=== PATIENT | male | born 1970 | race American Indian/Alaskan Native ===

== ENCOUNTER 2019-01-17 08:29 | Day surgery (SDC) | payer BC ==
[~2019-01-17 08:29] MED LIST: ceFAZolin/STERILE WATER 2 GM/20 ML SYRINGE IV NR
--- NOTE | 2019-01-17 09:01 | Anesthesia Day of Surgery ---
Anesthesia Day of Surgery - Day of Surgery Patient Examined: Yes Patient H&P Reviewed: Yes Patient is NPO: Yes
--- NOTE | 2019-01-17 09:01 | Anesthesia Consultation ---
Anesthesia Consult and Med Hx Date of service: 01/17/19 - Airway Anesthetic Teeth Evaluation: Good ROM Head & Neck: Adequate Mental/Hyoid Distance: Adequate Mallampati Class: Class II Intubation Access Assessment: Good - Pulmonary Exam CTA: Yes - Cardiac Exam Cardiac Exam: RRR - Pre-Operative Health Status ASA Pre-Surgery Classification: ASA1 Proposed Anesthetic Plan: General - Pulmonary Hx Smoking: No Hx Sleep Apnea: No (GODWIN PRE SCREEN LOW RISK) - Cardiovascular System Hx Hypertension: No - Other Systems Hx Substance Use: Yes (MARIJUANA 2-3 X PER WEEK) Hx Cancer: No
[2019-01-17] MEDS ORDERED: ONDANSETRON 4 MG/2 ML INJ IV PRN (09:02)
[2019-01-17] MEDS ORDERED: HYDROmorphone 1 MG/1 ML INJ IV PRN (09:02)
[2019-01-17] MEDS ORDERED: MIDAZOLAM 2 MG/2 ML INJ IV NR (10:00)
[2019-01-17] MEDS ORDERED: LACTATED RINGERS 1,000 ML IV SCH (10:00)
[2019-01-17] MEDS ORDERED: LIDOCAINE MPF (2%) 20 MG/1 ML VIAL 5 ML ONE (10:14)
[2019-01-17] MEDS ORDERED: fentaNYL 100 MCG/2 ML INJ ONE (10:14)
[2019-01-17] MEDS ORDERED: PROPOFOL 200 MG/20 ML VIAL IV ONE ×2 (10:14→10:26)
[2019-01-17] MEDS ORDERED: BUPIVACAINE/PF (0.25%) 2.5 MG/ML 30 ML VIAL INFILTRATI ONE ×2 (10:29→10:43)
[2019-01-17] MEDS ORDERED: ePHEDrine SULFATE 50 MG/1 ML INJ ONE (10:32)
[2019-01-17] MEDS ORDERED: ONDANSETRON 4 MG/2 ML INJ ONE (10:35)
[2019-01-17] MEDS ORDERED: dexAMETHasone 20 MG/5 ML VIAL ONE (10:35)
--- NOTE | 2019-01-17 11:08 | Short Stay Summary ---
Short Stay Documentation Date of service: 01/17/19 - History H&P: obtained from office - Allergies and Medications Current Medications: Allergies No Known Allergies Allergy (Verified 01/06/19 14:48) Home Medications Medication Instructions Recorded Confirmed Last Taken Type No Known Home Medications [No 01/06/19 01/06/19 Unknown History Reported Home Medications] Active Medications Cefazolin Sodium (Ancef/Sterile Water 2 Gm/20 Ml) 2 gm IV PREOP NR Stop: 01/17/19 23:00 Hydromorphone HCl (Dilaudid) 0.5 mg IV Q10MIN PRN PRN Reason: Pain , Severe (7-10) Stop: 01/17/19 22:00 Lactated Ringer's (Lactated Ringers) 1,000 mls @ 100 mls/hr IV DIRECT JESSE Midazolam HCl (Versed) 2 mg IV PREOP NR Stop: 01/17/19 23:59 Ondansetron HCl (Zofran) 4 mg IV ONCE PRN PRN Reason: Nausea And Vomiting Stop: 01/17/19 16:00 - Brief post op/procedure progress note Date of procedure: 01/17/19 Pre-op diagnosis: phimosis Post-op diagnosis: same Procedure: circ Anesthesia: GETA Surgeon: ANTONIETA HODGES Estimated blood loss: minimal Pathology: list (skin) Specimen disposition: to lab Condition: stable - Hospital course Hospital course: kay on chart - Disposition Condition at discharge: Stable Disposition: DC- TO HOME OR SELFCARE Short Stay Discharge Plan Follow up with: GLORIA ETIENNE MD [Primary Care Provider] - 7 Days
--- NOTE | 2019-01-17 11:32 | Operative Report ---
PREOPERATIVE DIAGNOSIS: Severe phimosis. POSTOPERATIVE DIAGNOSIS: Severe phimosis. PROCEDURE: Circumcision. SURGEON: Prabhakar Gan MD ANESTHESIA: General. ESTIMATED BLOOD LOSS: Minimal. FLUIDS: Crystalloid. COMPLICATIONS: No complications. INDICATIONS: This patient is a 48-year-old man seen in the office with severe phimosis. Oral and topical medications were not responsive. He discussed options and agreed to proceed with surgical intervention, unable to retract the foreskin. DESCRIPTION OF PROCEDURE: The patient was taken to the operative suite, placed in a supine position. After adequate general anesthesia, his foreskin was marked at the level of the coronal ridge. I was unable to retract the foreskin under anesthesia. Dorsal and ventral slit was made. A Betadine swab was used to clean the glans on the table. Foreskin was circumferentially removed and sent for routine pathologic evaluation. Shaft of skin was retracted proximally. Adequate hemostasis was achieved. The proximal and distal shaft skin was reapproximated and closed with 2-0 chromic in interrupted fashion. Melissa and Coban was placed on the shaft for a dressing. The patient tolerated the procedure well and was extubated and taken to recovery room in stable condition. He will go home on [place]. JOB# [id number] DANO/BELEN
[2019-01-17] MEDS ORDERED: HYDROcodone/ACETAMINOPHEN 5-325 MG TAB ONE (11:44)
[2019-01-17] MEDS ORDERED: HYDROcodone/ACETAMINOPHEN 5-325 MG TAB PO PRN (11:59)
[2019-01-17 12:37] VITALS: BP 121/83
--- NOTE | 2019-01-18 11:07 | Post Anesthesia Evaluation ---
- Post Anesthesia Evaluation Patient Participated: Yes Airway Patent: Yes Stable Respiratory Function: Yes Nausea/Vomiting: No Temp > 96.8F: Yes Pain Manageable: Yes Adequeate Hydration: Yes Anesthesia Complications: No Block Receding Appropriately: Not Applicable Patient on Ventilator: No
== END 2019-01-17 08:30 | disposition home or self-care (01) ==
LOC: OR 08:29
PROVIDERS: ATTEND Urology
DX: N47.1 Phimosis (principal); Z98.890 Other specified postprocedural states
CPT/HCPCS: 54161; 88304; J0690; J1100; J1170; J2250; J2405; J2704; J3010; J7120